=== PATIENT | female | born 1955 | race Caucasian/White ===

== ENCOUNTER 2024-06-14 19:16 | Emergency (ER) | payer OTHER ==
[~2024-06-14] VITALS: Ht 167.6 cm; Wt 65.0 kg
[2024-06-14 19:26] VITALS: O2SAT 100
[2024-06-14] MEDS ORDERED: NITROGLYCERIN 0.4MG TABLET SL SL PRN (20:00)
[2024-06-14] MEDS: ASPIRIN 81MG TABLET PO ONE (20:11)
[2024-06-14] MEDS: SODIUM CHLORIDE 0.9% 1,000 ML IV ONE (20:12)
[2024-06-14 20:50] LABS: BASOPHILS % 0.3 % (0.0-2.0); EOSINOPHILS % 4.1 % (0.0-5.0); HEMATOCRIT. 36.9 % (36.0-48.0); HEMOGLOBIN. 12.9 g/dL (12.0-16.0); LYMPHOCYTES % 17.6 % (20.0-50.0); MEAN CORPUSCULAR HEMOGLOBIN 30.3 pg (28.0-32.0); MEAN CORPUSCULAR HGB CONC 34.9 g/dL (31.0-37.0); MEAN PLATELET VOLUME 7.2 fl (7.4-10.4); MONOCYTES % 6.5 % (2.0-8.0); NEUTROPHILS % 71.5 % (40.0-76.0); PLATELET 227 x1000/uL (130-400); RED BLOOD CELL COUNT 4.24 mill/uL (4.2-5.4); RED CELL DISTRIBUTION WIDTH 13.9 % (11.6-14.6)
[2024-06-14 20:51] LABS: CHLORIDE 104 mEq/L (98-107); POTASSIUM 3.7 mEq/L (3.5-5.1); SODIUM 138 mEq/L (136-145)
[2024-06-14 20:52] LABS: CALCIUM 9.6 mg/dL (8.7-10.4); CARBON DIOXIDE 27 mEq/L (21-32)
[2024-06-14 20:57] LABS: CREATININE 0.6 mg/dL (0.6-1.0); GLUCOSE 123 mg/dL (70-105); UREA NITROGEN BLOOD 14 mg/dL (9-23)
[2024-06-14 20:58] LABS: TROPONIN I HIGH SENSITIVITY 7 ng/L (3.0-34)
[2024-06-14 20:59] LABS: ALANINE AMINOTRANSFERASE 64 IU/L (10-49); ALBUMIN 4.2 g/dL (3.2-4.8); ASPARTATE AMINOTRANSFERASE 143 IU/L (<34)
[2024-06-14 21:00] LABS: BILIRUBIN TOTAL 0.8 mg/dL (0.1-1.0); PROTEIN TOTAL 6.5 g/dL (6.0-8.3)
[2024-06-14 22:20] VITALS: BP 151/86; PULSE 65; RESP 17; TEMP 98.5
[2024-06-14] MEDS ORDERED: IOHEXOL-350 100 ML BOTTLE ONE (23:36)
[2024-06-14 23:39] LABS: TROPONIN I HIGH SENSITIVITY 29 ng/L (3.0-34)
== END 2024-06-15 01:12 | disposition short-term general hospital (02) ==
LOC: ER 19:16
DX: R07.9 Chest pain, unspecified (principal)
CPT/HCPCS: 99285; 74174; 96360; 71275; 96361; 71045; 80053; 83690; 85025; 84484; 36415; 93005; Q9967; J7030